=== PATIENT | male | born 1980 | race Caucasian/White ===

== ENCOUNTER 2020-09-28 08:05 | Inpatient (IN) | payer OTHER ==
[~2020-09-28] VITALS: Ht 195.6 cm; Wt 136.1 kg
[~2020-09-28 08:05] MED LIST: ALLERGY RELIEF180 MG PO; AZELASTINE137 MCG/0.; CLINDAMYCIN HC300 MG PO; NORCO 5-325 TA1 EACH PO
[2020-09-28 09:09] LABS: HEMOGLOBIN 16.2 gm/dl (14.0-17.5); RED BLOOD COUNT 5.64 M/UL (4.20-5.50); WHITE BLOOD COUNT 6.7 K/UL (4.5-11.0)
[2020-09-28 09:26] LABS: BUN/CREATININE RATIO 16 (0-10)
[2020-09-29 05:59] LABS: HEMOGLOBIN 15.2 gm/dl (14.0-17.5); RED BLOOD COUNT 5.35 M/UL (4.20-5.50)
[2020-09-29 06:20] LABS: BUN/CREATININE RATIO 17 (0-10)
[2020-09-30 03:58] LABS: HEMOGLOBIN 14.9 gm/dl (14.0-17.5); RED BLOOD COUNT 5.23 M/UL (4.20-5.50)
[2020-09-30 03:59] LABS: WHITE BLOOD COUNT 7.3 K/UL (4.5-11.0)
[2020-09-30 04:09] LABS: BUN/CREATININE RATIO 21 (0-10)
--- NOTE | 2020-10-01 06:30 | NUR ---
Patient called out , complaints of sharp stabbing lower abdominal. Stated "come help me, it hurts so bad." Upon entering room, assessemnt revealed patient talking loudly saying "it hurts, it hurts." At this time patient's 02 saturation in the 70's, experiencing tachypnea, diaphoretic. [employer]RI[employer]ER called at this time, ABG, chest x-ray, neb tx, ct abdomen ordered per md. Patient placed on airvow 93%. WCTM.
[2020-10-01 06:57] LABS: HEMOGLOBIN 14.6 gm/dl (14.0-17.5); RED BLOOD COUNT 5.14 M/UL (4.20-5.50); WHITE BLOOD COUNT 5.5 K/UL (4.5-11.0)
[2020-10-01 07:29] LABS: BUN/CREATININE RATIO 18 (0-10)
[2020-10-02 05:40] LABS: HEMOGLOBIN 15.8 gm/dl (14.0-17.5); RED BLOOD COUNT 5.51 M/UL (4.20-5.50)
--- NOTE | 2020-10-02 05:40 | NUR ---
10/01 1942 PT DAD CALLED AND UPDATED ON POC. ALL QUESTIONS ANSWERED. 0500: PT UP TO BC WITHOUT DIFFICULTY, PT RETURNED TO BED WITHOUT DIFFICULTY. PT BEGAN COUGHING AND SETTING BIPAP ALARMS OFF. PT O2 SAT DROPPED TO 85% ON 100% BIPAP. RT CALLED TO BEDSIDE, PT PLACED ON AIRVO DT COUGHING, UNABLE TO BRING SATS UP. DR KAUR CALLED TO BEDSIDE. ORDERS RECEIVED FOR 2MG IV MORPHINE NOW AND MORNING CXR TO BE COMPLETED. ORDERS COMPLETED. PT BEGAN TO RELAX AND OCCASIONALLY COUGH. O2 SAT MAINTAINING BETWEEN 90-95% ON 100% BIPAP.
[2020-10-02 06:00] LABS: BUN/CREATININE RATIO 20 (0-10)
[2020-10-03 05:36] LABS: HEMOGLOBIN 15.1 gm/dl (14.0-17.5); RED BLOOD COUNT 5.31 M/UL (4.20-5.50)
[2020-10-03 05:37] LABS: WHITE BLOOD COUNT 5.8 K/UL (4.5-11.0)
[2020-10-03 05:57] LABS: BUN/CREATININE RATIO 25 (0-10)
== END 2020-10-03 14:09 | disposition left against medical advice (07) | DRG 871 ==
LOC: ER1 08:05 → MED SURG 4 10:59 → CDU 10:59 → CCU 10:59 → MED SURG 4 23:59 → CCU 10-01 19:45
PROVIDERS: Internal Medicine; Physician Assistant Medical; ADMIT Internal Medicine
PROC: XW033E5 Introduction of Remdesivir Anti-infective into Peripheral Vein, Percutaneous Approach, New Technology Group 5 (ICD-10-PCS; principal; 2020-09-28)
PROC: 5A0945A Assistance with Respiratory Ventilation, 24-96 Consecutive Hours, High Flow/Velocity Cannula (ICD-10-PCS; 2020-09-28)
PROC: 3E0333Z Introduction of Anti-inflammatory into Peripheral Vein, Percutaneous Approach (ICD-10-PCS; 2020-09-28)
PROC: 5A09457 Assistance with Respiratory Ventilation, 24-96 Consecutive Hours, Continuous Positive Airway Pressure (ICD-10-PCS; 2020-10-01)
PROC: 8E0ZXY6 Isolation (ICD-10-PCS; 2020-10-01)
DX: A41.89 Other specified sepsis (principal); U07.1 COVID-19; J12.82 Pneumonia due to coronavirus disease 2019; J80 Acute respiratory distress syndrome; J15.9 Unspecified bacterial pneumonia; A08.39 Other viral enteritis; D72.810 Lymphocytopenia; F41.0 Panic disorder [episodic paroxysmal anxiety]; E66.01 Morbid (severe) obesity due to excess calories; N20.0 Calculus of kidney; Z53.29 Procedure and treatment not carried out because of patient's decision for other reasons; Z83.3 Family history of diabetes mellitus; Z83.6 Family history of other diseases of the respiratory system; Z79.899 Other long term (current) drug therapy; Z68.34 Body mass index [BMI] 34.0-34.9, adult
CPT/HCPCS: 0240U; 36415; 36600; 71045; 80048; 80053; 82728; 82803; 83605; 83615; 83735; 84439; 84443; 85025; 85027; 85379; 86140; 87040; 93005; 94640; 94660; 94664; 94760; 96374; 96375; 99284; J0456; J0696; J1100; J1650; J2185; J2270; J7030; J7050; Q9967

== ENCOUNTER → 2020-11-25 | Outpatient (CLI) | payer OTHER ==
[2020-11-25 08:22] LABS: HEMOGLOBIN 15.8 gm/dl (14.0-17.5); RED BLOOD COUNT 5.32 M/UL (4.20-5.50); WHITE BLOOD COUNT 12.2 K/UL (4.5-11.0)
[2020-11-25 08:48] LABS: BUN/CREATININE RATIO 12 (0-10)
== END ==
LOC: LAB 07:54
PROVIDERS: Emergency Medicine
DX: R06.02 Shortness of breath (principal); R09.02 Hypoxemia; R53.83 Other fatigue; Z86.16 Personal history of COVID-19
CPT/HCPCS: 36415; 80053; 83880; 85025; 85379

== ENCOUNTER → 2020-12-19 | Outpatient (CLI) | payer OTHER | LOC: RT 07:40 | DX: R53.83 Other fatigue (principal); R06.02 Shortness of breath; Z86.16 Personal history of COVID-19; R91.8 Other nonspecific abnormal finding of lung field | CPT/HCPCS: 36600; 71046; 82803 ==

== ENCOUNTER → 2021-01-12 | Outpatient (CLI) | payer OTHER | LOC: HEART 5 14:52 | DX: R09.02 Hypoxemia (principal) | CPT/HCPCS: 94060; 94729 ==

== ENCOUNTER → 2021-02-13 | Outpatient (CLI) | payer OTHER | LOC: KOH-I 13:46 | DX: R94.2 Abnormal results of pulmonary function studies (principal); U09.9 Post COVID-19 condition, unspecified | CPT/HCPCS: 71250 ==

== ENCOUNTER → 2021-03-24 | Outpatient (CLI) | payer OTHER | LOC: RAD 16:14 | DX: Z00.00 Encounter for general adult medical examination without abnormal findings (principal); F32.A Depression, unspecified; G47.30 Sleep apnea, unspecified; E66.9 Obesity, unspecified | CPT/HCPCS: 71046 ==

== ENCOUNTER → 2021-10-09 | Outpatient (CLI) | payer OTHER ==
[2021-10-09 09:55] LABS: HEMOGLOBIN 16.2 gm/dl (14.0-17.5); RED BLOOD COUNT 5.49 M/UL (4.20-5.50); WHITE BLOOD COUNT 8.2 K/UL (4.5-11.0)
[2021-10-09 11:37] LABS: BUN/CREATININE RATIO 16 (0-10)
== END ==
LOC: LAB 09:28
PROVIDERS: Emergency Medicine
DX: R53.83 Other fatigue (principal); R06.02 Shortness of breath; H81.13 Benign paroxysmal vertigo, bilateral; U09.9 Post COVID-19 condition, unspecified
CPT/HCPCS: 36415; 80053; 84443; 85025